=== PATIENT | male | born 1975 | race Caucasian/White ===

== ENCOUNTER 2019-10-10 22:34 | Emergency (ER) | payer OTHER, SELFPAY ==
[2019-10-10 22:35] VITALS: BP 115/73; PULSE 78; RESP 14; TEMP 37; O2SAT 97; BMI 33.5
--- NOTE | 2019-10-10 22:48 | EKG12_ITS ---
Test Reason : PALPATIONS Blood Pressure : / mmHG Vent. Rate : 161 BPM Atrial Rate : 138 BPM P-R Int : 000 ms QRS Dur : 090 ms QT Int : 288 ms P-R-T Axes : 000 -26 015 degrees QTc Int : 471 ms Atrial fibrillation with rapid ventricular response Nonspecific ST abnormality Abnormal ECG Confirmed by EMI MELO, STEVIE ([id number]), multimedia editor NOEL EDWARDS ([id number]) on 10/13/2019 12:32:15 PM Referred By: SYED Confirmed By:STEVIE MIDDLETON MD
--- NOTE | 2019-10-10 22:49 | ED.VIS.GEN ---
History of Present Illness Chief Complaint: Palpitations Informant: Patient Narrative: Patient stated he started having palpitations and heart racing 1 hour ago. Denies any chest pain or shortness of breath or other symptoms. It is been continuous. He does not feel like he is going to pass out. Current severity is mild. He stated he had palpitations approximately 3 years ago and wore Holter monitor but it never showed anything abnormal. No history of atrial fibrillation or arrhythmia. Patient had a bunionectomy 3 weeks ago. He was on Eliquis postop for short period of time but has been off of that for the last week. Denies any pain or swelling in his calf muscles. Denies any medical problems Past Medical History - Allergies and Home Meds Allergies/Adverse Reactions: Allergies No Known Allergies Allergy (Verified 10/10/19 22:35) Primary Care Physician: Lawrence Branham DO [Primary Care Provider] - Prior records reviewed: Yes Past Medical History: - - Foot bunion, palpitations Surgical History: - - Foot, hernia Lives: With Family Smoking Status: Never smoker Alcohol: None Drugs: None Review of Systems General: Denies: Chills, Fever, Sweats Eyes: Denies: Visual changes - bilaterally, Diplopia ENT: Denies: Rhinorrhea, Sore throat Cardiovascular: Reports: Palpitations, Heart racing. Denies: Chest pain Respiratory: Denies: Dyspnea, Cough, Dyspnea on exertion Gastrointestinal: Denies: Abdominal pain, Nausea, Vomiting, Diarrhea, Melena, Hematochezia Genitourinary: Denies: Dysuria, Hematuria, Frequency Musculoskeletal: Denies: Back pain, Extremity Pain Skin: Denies: Rash, Wounds Neurological: Denies: Headache, Weakness, Numbness Physical Exam Vital Signs/Narrative: Vital Signs Temp Pulse Resp BP Pulse Ox 10/10/19 22:35 98.6 F 78 14 115/73 97 General: Well nourished, Well developed, No Acute Distress Head: Normocephalic, Atraumatic Eyes: Perrl, EOMI ENT: Moist mucous membranes, No rhinorrhea Neck: Supple, Nontender Cardiovascular: No murmurs, Irregular, Tachycardia. Negative for: Regular rhythm Respiratory: No distress, CTA bilaterally, Chest nontender Abdomen: Soft, Nontender, Nondistended, Normal bowel sounds Back: Nontender, Normal Inspection Extremities: Nontender, No edema Skin: Normal color, No rash Neurological: Alert, Oriented x3, Cranial nerves II-XII grossly intact, Normal Strength, Normal Sensation Psychological: Normal affect, Normal Mood Diagnostic/Tx/Re-eval - Medical Decision Making EKG shows atrial fibrillation at a rate of 161. No STEMI. IV established and patient given Cardizem to slow his rate. Lab work and chest x-ray obtained. Patient given oral aspirin. Lab work obtained shows nothing acute. Troponin negative. TSH mildly elevated but normal T4. Chest x-ray normal. Heart rate slowed into the 90s after 2 doses of Cardizem. At this time I feel he can be discharged. Discussed with cardiology. They agree. He will follow-up with Dr. Mcclelland. Will be given long-acting Cardizem for home. We will follow-up as an outpatient. We agreed he does not need aspirin. His ChAds 2 score is zero. I feel he needs to be admitted. He would likely convert on his own. ED Disposition - Plan for ED Patient: Disposition: Home or Assisted Living Diagnosis: Atrial fibrillation with rapid ventricular response Instructions: Atrial Fibrillation Prescriptions: Diltiazem CD [Cardizem CD] 120 mg PO DAILY #21 cap Prescription Printed Referrals: Tripp Mcclelland MD [STAFF PHYSICIAN] -
[2019-10-10 22:53] VITALS: PULSE 165
[2019-10-10] MEDS: dilTIAZem 25 MG/5 ML Vial 20 MG IV BOLUS (22:54)
[2019-10-10] MEDS: Aspirin 81 MG TAB.CHEW 324 MG PO (22:54)
--- NOTE | 2019-10-10 22:56 | RAD_ITS ---
STUDY: X-RAY CHEST REASON FOR EXAM: Male, 44 years old. CHEST PAIN TECHNIQUE: Single frontal view of the chest. COMPARISON: None. FINDINGS: The lungs are clear and expanded. There is no demonstrated pleural abnormality. Normal size heart. Normal mediastinum and leti. Normal visualized pulmonary arteries. Normal visualized aortic arch and descending thoracic aorta. Normal visualized thoracic spine. Normal visualized ribs, clavicles, and shoulders. There is no demonstrated abnormality of the visualized soft tissue structures of the upper abdomen. RAD/Chest 1 View (Portable) IMPRESSION: Normal x-ray examination of the chest. Electronically Signed: Parish Mandel MD at 23:24 EST Tel , Service support ,
[2019-10-10 23:03] VITALS: BP 148/91; PULSE 102; RESP 18; O2SAT 96
[2019-10-10 23:25] LABS: Absolute Lymphocyte Count 1.45 X10^3/uL (0.83-4.51); Basophil# 0.06 X10^3/uL; Basophil% 0.6 % (0-1); Eosinophil# 0.26 X10^3/uL; Eosinophils% 2.6 % (0-5); Hematocrit 44.6 % (40-54); Hemoglobin 14.7 g/dL (13.0-16.5); Lymphocyte # 1.45 X10^3/ul (4.0); Lymphocyte % 14.6 % (19-41); Mean Corpuscular Hgb 29.9 pg (27.0-32.0); Mean Corpuscular Volume 90.8 fL (80-94); Mean Platelet Vol. 12.3 fl (6.2-12.0); Monocyte# 1.08 X10^3/uL; Monocyte% 10.9 % (0-10); NRBC Flagged by Analyzer 0 % (0-5); Neutrophil # 7.03 X10^3/uL (2.7-7.7); Neutrophil % 70.8 % (47-70); Platelet Count 260 K/mm3 (150-450); RBC Distribution Width CV 12.1 % (11.6-14.6); RBC Distribution Width SD 40.1 fl (35.1-43.9); Red Blood Count 4.91 M/mm3 (4.6-6.2); White Blood Count 9.9 K/mm3 (4.4-11.0)
[2019-10-10 23:35] LABS: Anion Gap 9 (5-15); BUN 17 mg/dL (7-18); BUN/Creat Ratio 14.7 RATIO (10-20); Calcium,Total 9.2 mg/dL (8.5-10.1); Chloride 108 mmol/L (98-107); Creatinine, Serum 1.16 mg/dL (0.70-1.30); EST Glomerular Filtration Rate 72 mL/min (>60); Est Glom Filt Rate - Afr Amer 88 mL/min (>60); Estimated Creatinine Clearance 101.35 ml/min; Glucose 146 mg/dL (74-106); Potassium 3.7 mmol/L (3.5-5.1); Sodium Level 140 mmol/L (136-145); Thyroid Stim Hormone (TSH) 4.58 uIU/mL (0.358-3.74)
[2019-10-10 23:56] LABS: T4 Total, Thyroxin 10.2 ug/dL (4.5-12.1)
[2019-10-11] MEDS: dilTIAZem 25 MG/5 ML Vial 20 MG IV BOLUS (00:13)
[2019-10-11 00:18] VITALS: BP 139/87; PULSE 85; RESP 12; O2SAT 96
[2019-10-11 00:39] VITALS: BP 126/82; PULSE 102; RESP 20; O2SAT 96
[2019-10-11 00:54] VITALS: BP 126/82; PULSE 92; RESP 15; O2SAT 96
== END 2019-10-11 01:06 | disposition home or self-care (01) ==
PROVIDERS: Emergency Provider Emergency Medicine; PCP Family Medicine
DX: I48.91 Unspecified atrial fibrillation (principal); R00.0 Tachycardia, unspecified
CPT/HCPCS: 71045; 80048; 84436; 84443; 84484; 85025; 93005; 96374; 96376; 99283; A4216

== ENCOUNTER → 2019-10-22 16:13 | Outpatient (CLI) | payer OTHER, SELFPAY ==
[2019-10-22 15:20] VITALS: BMI 32.9
[2019-10-22 16:37] LABS: D-Dimer Quantitative (DVT/PE) 0.32 FEU/ug/m (0.27-0.49)
== END ==
PROVIDERS: PCP Family Medicine; Referring Provider Internal Medicine Cardiovascular Disease; Visit Provider Internal Medicine Cardiovascular Disease
DX: I48.91 Unspecified atrial fibrillation (principal)
CPT/HCPCS: 36415; 85379

== ENCOUNTER → 2019-11-18 15:00 | Outpatient (CLI) | payer OTHER, SELFPAY ==
[2019-10-22 15:20] VITALS: BMI 32.9
--- NOTE | 2019-11-18 15:01 | ECHOD_ITS ---
Reason For Study: AFIB Procedure This was a 2D Doppler, Color Flow transthoracic echocardiogram. Exam performed in department. Left Ventricle Normal LV size. Left ventricular systolic function is normal. The estimated ejection fraction is 55 %. Normal diastology for age. No regional wall motion abnormalities noted. Right Ventricle Normal RV size. Normal systolic function. Atria The left atrium is mildly enlarged. Normal right atrium. Mitral Valve Normal mitral valve. Tricuspid Valve Normal tricuspid valve. Mild tricuspid valve insufficiency. Pulmonary artery systolic pressure is 26 mmHg. Aortic Valve Normal aortic valve. Trisinus/trileaflet aortic valve. Pulmonic Valve Normal pulmonic valve. Great Vessels Normal aortic root. The pulmonary artery is normal size. Normal inferior vena cava. Pericardium/Pleural No pericardial effusion. MMode/2D Measurements & Calculations LVIDd: 5.2 cm IVSd: 1.1 cm Ao root diam: 3.3 cm LVIDs: 3.4 cm LVPWd: 1.1 cm RVDd: 4.1 cm FS: 34.3 % LAV(MOD-bp): 88.7 ml LA A4 area: 24.3 cm2 LA dimension(2D): 4.4 cm LAV(MOD-bp) Indexed: 34.5 ml/m2 LAV(MOD-sp2): 91.1 ml LAV(MOD-sp4): 83.8 ml RA A4 area: 17.6 cm2 Time Measurements MV dec time: 0.18 sec Doppler Measurements & Calculations MV E max rafita: 69.6 cm/sec Lat Peak E' Rafita: 13.2 cm/sec Med Peak E' Rafita: 7.4 cm/sec MV A max rafita: 54.6 cm/sec E/E' lat: 5.3 E/E' med: 9.4 MV E/A: 1.3 Ao V2 max: 99.3 cm/sec LV V1 max: 94.6 cm/sec PA V2 max: 135.2 cm/sec Ao max P.9 mmHg LV V1 max P.6 mmHg TR max rafita: 240.6 cm/sec TR max P.2 mmHg Interpretation Summary Normal LV size. Left ventricular systolic function is normal. The estimated ejection fraction is 55 %. The left atrium is mildly enlarged. Normal diastology for age. Ordering Physician: Tripp Mcclelland Referring Physician: Lawrence Branham Performed By: Luiza Enciso RDCS, RVT
== END ==
PROVIDERS: PCP Family Medicine; Referring Provider Internal Medicine Cardiovascular Disease; Visit Provider Internal Medicine Cardiovascular Disease
DX: I48.91 Unspecified atrial fibrillation (principal)
CPT/HCPCS: 93306

== ENCOUNTER 2024-03-11 23:07 | Emergency (ER) | payer OTHER, SELFPAY ==
[2024-03-11 23:08] VITALS: BP 168/93; PULSE 63; RESP 14; TEMP 36; O2SAT 93; BMI 30.6
--- NOTE | 2024-03-11 23:26 | EKG12_ITS ---
Test Reason : CP Blood Pressure : / mmHG Vent. Rate : 064 BPM Atrial Rate : 064 BPM P-R Int : 166 ms QRS Dur : 116 ms QT Int : 410 ms P-R-T Axes : 042 -30 009 degrees QTc Int : 422 ms Normal sinus rhythm Left axis deviation Abnormal ECG Confirmed by Prashant Barth ([id number]), manuscript editor GUERA JACKSON ([id number]) on 03/13/2024 11:16:31 AM Referred By: TIM Confirmed By:Prashant Barth
--- NOTE | 2024-03-11 23:27 | ED.VIS.CHEST ---
HPI History of Present Illness Chief Complaint: Chest Pain Informant: patient Onset/Context/Timing Onset: Today Narrative Narrative: Patient presents secondary to chest and right arm pain. He states about an hour and a half ago when he was getting ready go to bed he noted pain in his chest and down his right arm. He describes it as an aching discomfort. He does not feel short of breath. He was stung by 2 wasp on the back of his head around 6 PM this evening. He is not sure if this is related but he did take a dose of Benadryl. He denies history of coronary artery disease. He did have a single episode of paroxysmal A-fib after surgery about 4 years ago. [facility] Medical History (Updated 03/12/24 @ 02:[address] Jenni Gonsalves MD) Paroxysmal atrial fibrillation Essential (primary) hypertension Surgical wound infection (09/23/19) Elevated blood pressure reading without diagnosis of hypertension Home Medications ?Medication ?Instructions ?Recorded ?Last Taken ?Type amlodipine 2.5 mg tablet 2.5 mg PO DAILY #90 tabs 02/21/24 Unknown Rx Allergy/AdvReac Type Severity Reaction Status Date / Time No Known Allergies Allergy Verified 11/12/23 16:23 Family History Mother Hyperlipidemia Father Hyperlipidemia Grandmother Hyperlipidemia Surgical History Hammer toe of left foot History of bunionectomy Social History household members: family housing: house Smoking Status: Never smoker alcohol intake: current alcohol intake frequency: a few times a week Alcohol type: beer substance use type: does not use caffeine: Yes Type: tea Number of servings: 1 ROS ROS ED Constitutional Constitutional ED: Denies chills or fever(s) Eyes Eyes: Denies change in vision ENT ENT ED: Denies rhinorrhea or sore throat Cardiovascular Cardiovascular: Reports chest pain; Denies palpitations or racing heartbeat Respiratory/Chest Respiratory/Chest: Denies cough or dyspnea Gastrointestinal Gastrointestinal: Denies abdominal pain, nausea or vomiting Genitourinary Genitourinary ED: Denies dysuria Musculoskeletal Musculoskeletal: Reports extremity pain; Denies back pain Integumentary Denies Abrasions or rash Neurologic Neurologic: Denies headache(s) or weakness Psychiatric Psychiatric: Denies anxiety or depression Allergic/Immunologic Allergic/Immunologic ED: Denies lip swelling or urticaria EXAM Physical Exam Const Vital Signs: 03/11/24 23:08 03/11/24 23:11 03/11/24 23:26 Temperature 96.8 F L Temperature Source Temporal Pulse Rate 63 Respiratory Rate 14 Respiratory Effort Normal Non-Labored Blood Pressure 168/93 H Blood Pressure Mean 118 Pulse Ox 93 Oxygen Delivery Method Room Air Room Air 03/12/24 00:08 03/12/24 00:14 03/12/24 00:15 Temperature Temperature Source Pulse Rate 65 61 65 Respiratory Rate 12 14 7 L Respiratory Effort Blood Pressure 167/104 H Blood Pressure Mean 125 Pulse Ox 99 98 99 Oxygen Delivery Method Room Air 03/12/24 00:30 03/12/24 00:45 03/12/24 01:00 Temperature Temperature Source Pulse Rate 65 57 L 59 L Respiratory Rate 13 10 L 10 L Respiratory Effort Blood Pressure 160/82 H Blood Pressure Mean 104 Pulse Ox 98 99 98 Oxygen Delivery Method Room Air 03/12/24 01:15 03/12/24 01:30 03/12/24 01:45 Temperature Temperature Source Pulse Rate 66 66 59 L Respiratory Rate 12 13 13 Respiratory Effort Blood Pressure Blood Pressure Mean Pulse Ox 97 97 96 Oxygen Delivery Method 03/12/24 02:00 Temperature Temperature Source Pulse Rate 68 Respiratory Rate 11 L Respiratory Effort Blood Pressure 147/87 H Blood Pressure Mean 105 Pulse Ox 97 Oxygen Delivery Method Room Air Positive well nourished and well developed General Appearance ED: well developed HEENT Reports moist mucous membranes Eyes EOMs intact bilaterally Chest Wall inspection of chest normal and palpation of chest normal Resp normal respiratory effort and clear to auscultation bilaterally Cardio regular rate and regular rhythm GI soft to palpation and non-tender Extremity normal to inspection Neuro oriented x3 and no sensory deficits noted Motor Exam: strength 5/5 throughout Psych mental status grossly normal Skin no rashes or lesions noted MDM MDM MDM Narrative Medical decision making narrative: Patient placed on playground monitor. IV line initiated. Patient given aspirin. EKG obtained to evaluate for cardiac arrhythmia/ischemia. Chest x-ray obtained to evaluate for acute lung pathology, cardiac size, or mediastinal abnormality. Labwork obtained to evaluate for leukocytosis, anemia, and electrolyte derangement. History & Record Review Discussion w/independent historian: Patient Lab Data Attestation: I reviewed the patient's lab results. Labs: Laboratory Results - last 24 hr 03/11/24 03/12/24 23:38 01:52 WBC 9.0 RBC 4.55 L Hgb 14.0 Hct 43.0 MCV 94.5 H MCH 30.8 MCHC 32.6 RDW Std Deviation 43.9 RDW Coeff of Criselda 12.6 Plt Count 206 MPV 11.8 Immature Gran % (Auto) 0.600 Neut % (Auto) 70.2 H Lymph % (Auto) 19.2 [place] % (Auto) 6.7 Eos % (Auto) 2.7 Baso % (Auto) 0.6 Absolute Neuts (auto) 6.3 Absolute Lymphs (auto) 1.73 Nucleated RBC % 0 Sodium 139 Potassium 3.7 Chloride 106 Carbon Dioxide 26.0 Anion Gap 7 BUN 18 Creatinine 0.89 Estim Creat Clear Calc 142.38 Est GFR (MDRD) Af Amer 117 Est GFR (MDRD) Non-Af 97 BUN/Creatinine Ratio 20.3 H Glucose 101 Calcium 8.9 Troponin I High Sens 4 5 Radiography Chest X-Ray - ED: 1 View, Read by ED Physician, Normal, Heart, Lungs and Mediastinum Diagnostic Testing: Clinical Impression(s) from Imaging Studies Chest X-Ray 03/11/24 23:31 IMPRESSION: No radiographic evidence of acute cardiopulmonary disease. Electronically Signed: Joey Monteiro MD at 0:05 EDT Reading Location ID and State: [facility] / [place] Tel , Service support , EKG Initial EKG: Attestation: I personally reviewed and interpreted this EKG as follows: Interpretation: Sinus Rhythm (Sinus at 64 with no acute ischemia.) Treatment and Re-Evaluation :: CBC was normal white count 9.0 the hemoglobin of 14.0. 70% neutrophils appreciated. Chemistry studies unremarkable. Initial troponin is 4 with a repeat troponin of 5. Portable chest x-ray per my interpretation feels no acute abnormalities. Radiology interpretation reviewed and agrees. EKG is sinus rhythm with no evidence of acute ischemia. On repeat evaluation patient resting comfortably. He states his pain is improved. His blood pressure is currently in the 140s systolic. At this time I see no evidence of acute cardiac injury. My suspicion is that his symptoms may have been from the adrenaline associated with the wasp stings. I did encourage him to follow-up with his primary care physician as well as return for any worsening symptoms or concerns. He voices understanding and agreement. Discharge Plan Triage Chief Complaint: Chest Pain ED Provider: Jenni Gonsalves Dx/Rx/DC Orders Clinical Impression: Chest pain Instructions: ED Chest Pain, Uncertain Cause Prescriptions: No Action amlodipine 2.5 mg tablet 2.5 mg PO DAILY Qty: 90 3RF Primary Care Provider: Lawrence Branham Referrals: Lawrence Branham DO [Primary Care Provider] - 1 Week Print Language: Danish Disposition Disposition: Home, Self Care
[2024-03-11] MEDS: 0.9% Normal Saline (1000mL) 1,000 ML 150 ML IV (23:30)
[2024-03-11] MEDS: Aspirin 81 MG TAB.CHEW 324 MG PO (23:30)
--- NOTE | 2024-03-11 23:31 | RAD_ITS ---
EXAM: XR CHEST, 1 VIEW CLINICAL INDICATION: chest pain TECHNIQUE: Frontal view of the chest. COMPARISON: Single view chest 10/10/2019. FINDINGS: LUNGS AND PLEURAL SPACES: Unremarkable. No consolidation or edema. No pneumothorax. No effusion. HEART: Unremarkable. Cardiac silhouette not enlarged. MEDIASTINUM: Central airways and mediastinal contour are unremarkable. BONES/JOINTS: Unremarkable. No acute fracture. SOFT TISSUES: Unremarkable. RAD/Chest 1 View (Portable) IMPRESSION: No radiographic evidence of acute cardiopulmonary disease. Electronically Signed: Joey Monteiro MD at 0:05 EDT ,
[2024-03-11 23:47] LABS: Absolute Lymphocyte Count 1.73 X10^3/uL (0.83-4.51); Absolute Neutrophil Count 6.3 X10^3/uL (2.0-7.7); Basophil# 0.05 X10^3/uL; Basophil% 0.6 % (0-1); Eosinophil# 0.24 X10^3/uL; Eosinophils% 2.7 % (0-5); Lymphocyte # 1.73 X10^3/ul (0.83-4.51); Lymphocyte % 19.2 % (19-41); Mean Corp Hgb Conc 32.6 g/dL (32-36); Mean Corpuscular Hgb 30.8 pg (27.0-32.0); Mean Corpuscular Volume 94.5 fL (80-94); Mean Platelet Vol. 11.8 fl (6.2-12.0); Monocyte% 6.7 % (0-10); NRBC Flagged by Analyzer 0 % (0-5); Neutrophil # 6.34 X10^3/uL (2.7-7.7); Neutrophil % 70.2 % (47-70); Platelet Count 206 K/mm3 (150-450); RBC Distribution Width CV 12.6 % (11.6-14.6); RBC Distribution Width SD 43.9 fl (35.1-43.9); Red Blood Count 4.55 M/mm3 (4.6-6.2)
[2024-03-12] VITALS (11 sets, daily range): BP systolic 147–167; BP diastolic 68–104; PULSE 57–82; RESP 7–16; TEMP 36.9; O2SAT 96–99
[2024-03-12 00:28] LABS: Anion Gap 7 (5-15); BUN 18 mg/dL (7-18); BUN/Creat Ratio 20.3 RATIO (10-20); Calcium,Total 8.9 mg/dL (8.5-10.1); Chloride 106 mmol/L (98-107); Creatinine, Serum 0.89 mg/dL (0.70-1.30); EST Glomerular Filtration Rate 97 mL/min (>60); Est Glom Filt Rate - Afr Amer 117 mL/min (>60); Estimated Creatinine Clearance 142.38 ml/min; Glucose 101 mg/dL (74-106); Potassium 3.7 mmol/L (3.5-5.1); Sodium Level 139 mmol/L (136-145); Troponin-I HS (w/2H Reflex) 4 pg/mL (3.0-78.0)
[2024-03-12 01:44] LABS: Reflex Troponin-HS? (from REC) Y
[2024-03-12 02:17] LABS: Troponin-I HS 5 pg/mL (3.0-78.0)
== END 2024-03-12 02:30 | disposition home or self-care (01) ==
PROVIDERS: Emergency Provider Emergency Medicine; PCP Family Medicine; Visit Provider Emergency Medicine
DX: R07.9 Chest pain, unspecified (principal)
CPT/HCPCS: 71045; 80048; 84484; 85025; 93005; 96360; 96361; 99283; J7030; A4216